=== PATIENT | male | born 1930 | race Caucasian/White ===

== ENCOUNTER 2016-03-27 11:34 | Emergency (ER) | payer MEDICARE, OTHER ==
[~2016-03-27] VITALS: Ht 175.3 cm; Wt 80.3 kg
[~2016-03-27 11:34] MED LIST: APIX5TAB PO; METF500 PO; MIRA33502 PO; NITR0.4S SL; PACE200T4 PO; POLY10O RIGHT EYE; TAMS0.4C4 PO; ZOCO40TA PO
[2016-03-27 11:42] VITALS: BP 139/65; PULSE 54; RESP 18; TEMP 97.8; O2SAT 97
--- NOTE | 2016-03-27 11:59 | PD ---
HPI Chief Complaint: Cold / Flu Symptoms Time Seen by Provider: 11:59 Travel History International Travel<30 days: No Contact w/Intl Traveler<30days: No Traveled to known affect area: No History of Present Illness HPI 85-year-old male with PMH of A. fib and diabetes, on Eloquis presents to the ED for evaluation of a 3 day history of sore throat, cough productive of yellow mucus. He endorses clear rhinorrhea. He denies headache, malaise, fever, chills, ear pain, shortness of breath. He endorses occasional nausea associated with coughing fits. Denies vomiting. States he is otherwise been feeling well. Endorses this years flu immunization. 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) Hypertension: Yes Inguinal Hernia: Yes (REPAIRED 1991) Immunizations Current: Yes Past Surgical History Genitourinary Surgery: Yes (Bladder CA ) Other Surgery: Yes (INGUINAL HERNIA REPAIR 1991) Social History Alcohol Use: No Tobacco Use: No (quit 50 years ago) Substance Use: No Allergies-Medications (Allergen,Severity, Reaction): Coded Allergies: No Known Allergies (Verified , 03/27/16) Reported Meds & Prescriptions Reported Meds & Active Scripts Active Fluticasone Nasal [place] 50 Mcg/Act Naspr 100 Mcg EACH NARE BID 14 Days 50 mcg/spray Reported Amiodarone (Amiodarone HCl) 200 Mg Tab 200 Mg PO DAILY Eliquis (Apixaban) 5 Mg Tab 5 Mg PO BID Simvastatin 10 Mg Tab 10 Mg PO DAILY Miralax Powder (Polyethylene Glycol 3350 Powder) 17 Gm Powd 17 Gm PO DAILY Mix and dissolve one measuring cap-ful (17 grams) in water or juice. Metformin (Metformin HCl) 500 Mg Tab 500 Mg PO DAILY With a meal Tamsulosin (Tamsulosin HCl) 0.4 Mg Cap 0.4 Mg PO HS Famotidine 40 Mg Tab 40 Mg PO HS Pantoprazole (Pantoprazole Sodium) 40 Mg Tab 40 Mg PO DAILY Review of Systems Except as stated in HPI: all other systems reviewed are Neg Physical Exam Narrative GENERAL: Well-nourished, well-developed elderly white male in no acute distress. SKIN: Warm and dry. HEAD: Normocephalic. Atraumatic. EYES: No scleral icterus. No injection or drainage. PERRLA. EOMI. ENT: Pearly sarabia tympanic membranes bilaterally. Nasal mucosa is moist, mildly erythematous. Oropharynx with mild posterior erythema, no edema or exudate. Uvula midline. Airway patent. NECK: Supple, trachea midline. No JVD or lymphadenopathy. CARDIOVASCULAR: Regular rate and rhythm without murmurs, gallops, or rubs. RESPIRATORY: Breath sounds clear and equal bilaterally. No accessory muscle use. GASTROINTESTINAL: Abdomen soft, non-tender, nondistended. + Bowel sounds MUSCULOSKELETAL: No cyanosis, or edema. The patient is observed to walk with a normal gait. BACK: Nontender without obvious deformity. No CVA tenderness. Data Data Last Documented VS Vital Signs Date Time Temp Pulse Resp B/P Pulse Ox O2 Delivery O2 Flow Rate FiO2 03/27/16 12:20 20 03/27/16 11:42 97.8 54 139/65 97 Orders Group A Rapid Strep Screen (03/27/16 12:08) Chest, Single Ap (03/27/16 ) Strep Culture (Group A) (03/27/16 12:26) MDM Medical Decision Making Medical Screen Exam Complete: Yes Emergency Medical Condition: Yes Differential Diagnosis Viral syndrome versus pharyngitis versus strep pharyngitis versus other Narrative Course 85-year-old male with PMH of A. fib and diabetes, on Eloquis presents to the ED for evaluation of a 3 day history of sore throat, cough productive of yellow mucus and clear rhinorrhea. He denies headache, malaise, fever, chills, ear pain, shortness of breath. He endorses occasional nausea associated with coughing fits. Denies vomiting. States he is otherwise been feeling well. Endorses this years flu immunization. Vitals reviewed. Physical exam reveals a nontoxic-appearing white male in no acute distress. Pearly sarabia tympanic membranes bilaterally. Nasal mucosa moist, mildly erythematous. There is mild posterior oropharyngeal erythema. No exudates, no edema. Uvula midline. Airway patent. Heart has a slow, regular rhythm. Chest clear to auscultation bilaterally. Remaining physical exam is unremarkable. Rapid strep swab negative. Chest x-ray reveals no acute disease per radiology read. Suspect this patient's cough is due to postnasal drip. Prescribed him Flonase 2 sprays each nostril daily. Recommended symptomatic treatment with OTC medication for cough, seek recommendations of the pharmacist. He is instructed to take the medication as prescribed, follow up with the primary care. We discussed reasons to return to the ED. He indicated understanding of the instructions and was amenable to plan of care. He is stable and discharged home. Diagnosis Primary Impression: Post-nasal drip Additional Impression: Cough Referrals: Primary Care Physician Patient Instructions: Acute Cough (ED), General Instructions, Safe Use of Cough and Cold Medicines (ED) Additional Instructions: Rest, hydrate. 2 sprays Flonase into each nostril daily. Increase handwashing frequency in order to reduce spread of viral illnesses in the community. Follow up with your primary care provider this week Return to the ED for any urgent or emergent medical condition. Med/Other Pt SpecificInfo: Prescription(s) given Scripts Fluticasone Nasal [place] 50 Mcg/Act [id number] Mcg EACH NARE BID 14 Days Ref 0 50 mcg/spray Prov:Pete Ernandez MD 03/27/16 Disposition: 01 DISCHARGE HOME Condition: Stable Shobha Angulo Mar 27, 2016 11:59
[2016-03-27] MEDS ORDERED: FAMO40TA PO (12:15)
[2016-03-27] MEDS ORDERED: SIMV10TA PO (12:15)
[2016-03-27] MEDS ORDERED: APIX5TAB PO (12:15)
[2016-03-27] MEDS ORDERED: TAMS0.4C4 PO (12:15)
[2016-03-27] MEDS ORDERED: METF500T PO (12:15)
[2016-03-27] MEDS ORDERED: PANT40TA3 PO (12:15)
[2016-03-27] MEDS ORDERED: MIRA33504 PO (12:15)
[2016-03-27] MEDS ORDERED: AMIO200T PO (12:15)
--- NOTE | 2016-03-27 12:47 | RADHPO ---
EXAM DATE/TIME: 03/27/2016 12:37 [facility] COMPARISON: No previous studies available for comparison. INDICATIONS : Cough, chest congestion. MEDICAL HISTORY : Hypertension. Cardiovascular disease. SURGICAL HISTORY : None. ENCOUNTER: Initial ACUITY: 1 week PAIN SCORE: 0/10 LOCATION: Bilateral chest FINDINGS: A single view of the chest demonstrates the lungs to be symmetrically aerated without evidence of mas s, infiltrate or effusion. Linear atelectasis versus scarring within the left lower lobe. The cardio mediastinal contours are unremarkable. Osseous structures are intact. CONCLUSION: 1. No acute disease. Abran Garber Jr., MD on March 27, 2016 at 12:45 Board Certified Radiologist. This report was verified electronically.
[2016-03-27] MEDS ORDERED: FLUT50SP EACH NARE (12:50)
== END 2016-03-27 12:57 | disposition home or self-care (01) ==
LOC: PHEFT 11:34
DX: R09.82 Postnasal drip (principal); R05 Cough; E11.9 Type 2 diabetes mellitus without complications; I48.91 Unspecified atrial fibrillation; E78.00 Pure hypercholesterolemia, unspecified; I10 Essential (primary) hypertension
CPT/HCPCS: 71010; 87081; 87880; 99283

== ENCOUNTER 2016-09-19 02:00 | Emergency (ER) | payer MEDICARE, OTHER ==
[~2016-09-19 02:00] MED LIST changes: +AMIO200T PO; +FAMO40TA PO; +FLUT50SP EACH NARE; -METF500 PO; +METF500T PO; -MIRA33502 PO; +MIRA33504 PO; -NITR0.4S SL; -PACE200T4 PO; +PANT40TA3 PO; -POLY10O RIGHT EYE; +SIMV10TA PO; -ZOCO40TA PO
[2016-09-19 02:07] VITALS: BP 156/68; PULSE 56; RESP 16; TEMP 97.5; O2SAT 98
[2016-09-19] MEDS ORDERED: PROPARACAINE HCL 0.5% OPHT SOLN 15 ML BTL EACH EYE ONE (02:15)
[2016-09-19] MEDS ORDERED: BACIOIN6 LEFT EYE (02:21)
--- NOTE | 2016-09-19 02:22 | PD ---
HPI Chief Complaint: left eye Time Seen by Provider: 02:17 Travel History International Travel<30 days: No Contact w/Intl Traveler<30days: No Traveled to known affect area: No History of Present Illness HPI woke up with sensation of fb on left eye, he rubbed his eye, still felt it and his helped to irrigate eye but still has that sensation that some thing is there. 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) Hypertension: Yes Inguinal Hernia: Yes (REPAIRED 1991) Immunizations Current: Yes Past Surgical History Genitourinary Surgery: Yes (Bladder CA ) Other Surgery: Yes (INGUINAL HERNIA REPAIR 1991) Social History Alcohol Use: No Tobacco Use: No (quit 50 years ago) Substance Use: No Allergies-Medications (Allergen,Severity, Reaction): Coded Allergies: No Known Allergies (Verified , 03/27/16) Reported Meds & Prescriptions Reported Meds & Active Scripts Active Fluticasone Nasal [place] 50 Mcg/Act Naspr 100 Mcg EACH NARE BID 14 Days 50 mcg/spray Reported Amiodarone (Amiodarone HCl) 200 Mg Tab 200 Mg PO DAILY Eliquis (Apixaban) 5 Mg Tab 5 Mg PO BID Simvastatin 10 Mg Tab 10 Mg PO DAILY Miralax Powder (Polyethylene Glycol 3350 Powder) 17 Gm Powd 17 Gm PO DAILY Mix and dissolve one measuring cap-ful (17 grams) in water or juice. Metformin (Metformin HCl) 500 Mg Tab 500 Mg PO DAILY With a meal Tamsulosin (Tamsulosin HCl) 0.4 Mg Cap 0.4 Mg PO HS Famotidine 40 Mg Tab 40 Mg PO HS Pantoprazole (Pantoprazole Sodium) 40 Mg Tab 40 Mg PO DAILY Review of Systems Except as stated in HPI: all other systems reviewed are Neg Eyes: Positive: Foreign Body Sensation Physical Exam Narrative GENERAL: SKIN: Warm and dry. HEAD: Atraumatic. Normocephalic. EYES: Pupils equal and round. No scleral icterus. No injection or drainage. 20/ 50 unilateral and bilaterally corrected...proparacaine applied to left eye, flourescein and uv light showed corneal abrasion at 4 o clock area ENT: No nasal bleeding or discharge. Mucous membranes pink and moist. NECK: Trachea midline. No JVD. CARDIOVASCULAR: Regular rate and rhythm. RESPIRATORY: No accessory muscle use. Clear to auscultation. Breath sounds equal bilaterally. GASTROINTESTINAL: Abdomen soft, non-tender, nondistended. Hepatic and splenic margins not palpable. MUSCULOSKELETAL: Extremities without clubbing, cyanosis, or edema. No obvious deformities. NEUROLOGICAL: Awake and alert. No obvious cranial nerve deficits. Motor grossly within normal limits. Five out of 5 muscle strength in the arms and legs. Normal speech. PSYCHIATRIC: Appropriate mood and affect; insight and judgment normal. Data Data Last Documented VS Vital Signs Date Time Temp Pulse Resp B/P Pulse Ox O2 Delivery O2 Flow Rate FiO2 09/19/16 02:07 97.5 56 16 156/68 98 Orders Proparacaine 0.5% Opth Soln (Alcaine 0.5 (09/19/16 02:15) [facility] Medical Decision Making Medical Screen Exam Complete: Yes Emergency Medical Condition: Yes Medical Record Reviewed: Yes Differential Diagnosis fb v corneal abrasion v globe rupture Narrative Course examination neg for ry's sign, but did show corneal abrasion, normal pupil, eomi, perrl, 20/50 corrected vision. patient will be d/c home. Diagnosis Primary Impression: Left corneal abrasion Qualified Code: S05.02XA - Abrasion of left cornea, initial encounter Patient Instructions: Corneal Abrasion (ED) Scripts Bacitracin Opth Oint 500 Unit/Gm Oint1 Applic LEFT EYE BID #1 TUBE Ref 0 Prov:Steve Moore MD 09/19/16 Disposition: 01 DISCHARGE HOME Condition: Stable Steve Moore MD Sep 19, 2016 02:22
[2016-09-19] MEDS ORDERED: GLIP5TAB8 PO (02:34)
[2016-09-19] MEDS ORDERED: CLOP75TA PO (02:34)
[2016-09-19] MEDS ORDERED: POLY119P (02:34)
== END 2016-09-19 02:42 | disposition home or self-care (01) ==
LOC: PHED 02:00
DX: S05.02XA Injury of conjunctiva and corneal abrasion without foreign body, left eye, initial encounter (principal); T15.02XA Foreign body in cornea, left eye, initial encounter; I48.91 Unspecified atrial fibrillation; E78.00 Pure hypercholesterolemia, unspecified; E11.9 Type 2 diabetes mellitus without complications; I10 Essential (primary) hypertension
CPT/HCPCS: 99283

== ENCOUNTER 2017-05-04 12:37 | Emergency (ER) | payer MEDICARE, OTHER ==
[~2017-05-04] VITALS: Ht 175.3 cm; Wt 80.0 kg
[~2017-05-04 12:37] MED LIST changes: +BACIOIN6 LEFT EYE; +CLOP75TA PO; -FAMO40TA PO; -FLUT50SP EACH NARE; +GLIP5TAB8 PO; -METF500T PO; -MIRA33504 PO; -PANT40TA3 PO; +POLY119P
[2017-05-04 13:02] VITALS: BP 126/59; PULSE 85; RESP 16; TEMP 97.9; O2SAT 95
--- NOTE | 2017-05-04 14:29 | PD ---
HPI Chief Complaint: Wound/Suture/Staple Re-Check Time Seen by Provider: 13:44 Travel History International Travel<30 days: No Contact w/Intl Traveler<30days: No Traveled to known affect area: No History of Present Illness HPI This is an 86-year-old male here requesting a dressing change. Patient reports he had a cardiac catheterization done in [place] 7 days ago and was told to leave the right groin dressing in place until follow-up with his primary. He reports he will be in [facility] until next week and was not able to drive to [place] to follow up with his primary. He denies any medical complaint. No fever, chills, pain, drainage at the site. He denies chest pain, shortness of breath. PFSH Past Medical History Hx Anticoagulant Therapy: Yes Atrial Fibrillation: Yes Heart Rhythm Problems: Yes (A-fib) Cancer: Yes (bladder cancer) Cardiac Catheterization: Yes (2002 DR. 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) Hypertension: Yes Inguinal Hernia: Yes (REPAIRED 1991) Immunizations Current: Yes Influenza Vaccination: No ?: Not Past Surgical History Cardiac Surgery: Yes Coronary Stent: Yes Genitourinary Surgery: Yes (Bladder CA ) Other Surgery: Yes (INGUINAL HERNIA REPAIR 1991) Social History Alcohol Use: No Tobacco Use: No (quit 50 years ago) Substance Use: No Allergies-Medications (Allergen,Severity, Reaction): Coded Allergies: No Known Allergies (Verified Adverse Reaction, Unknown, 05/04/17) Reported Meds & Prescriptions Reported Meds & Active Scripts Active Reported Glipizide 5 Mg Tab 5 Mg PO DAILY Take 30 minutes before a meal Clopidogrel (Clopidogrel Bisulfate) 75 Mg Tab 75 Mg PO DAILY Clearlax (Polyethylene Glycol 3350) 1 Pow Pow Amiodarone (Amiodarone HCl) 200 Mg Tab 200 Mg PO DAILY Eliquis (Apixaban) 5 Mg Tab 5 Mg PO BID Simvastatin 10 Mg Tab 10 Mg PO DAILY Tamsulosin (Tamsulosin HCl) 0.4 Mg Cap 0.4 Mg PO HS Review of Systems Except as stated in HPI: all other systems reviewed are Neg General / Constitutional: No: Fever Eyes: No: Visual changes HENT: No: Headaches Cardiovascular: No: Chest Pain or Discomfort Respiratory: No: Shortness of Breath Gastrointestinal: No: Abdominal Pain Genitourinary: No: Dysuria Physical Exam Narrative GENERAL: Alert and well-appearing 86-year-old male SKIN: Warm and dry. Right groin: Original clean/dry Tegaderm in place. Dressing was removed. Well-healed incision measuring less than 3 mm. No drainage. No erythema. No warmth. No induration. HEAD: Normocephalic. EYES: No injection or drainage. NECK: Supple CARDIOVASCULAR: Regular rate and rhythm RESPIRATORY: Breath sounds equal bilaterally. No accessory muscle use. Data Data Last Documented VS Vital Signs Date Time Temp Pulse Resp B/P (MAP) Pulse Ox O2 Delivery O2 Flow Rate FiO2 05/04/17 13:02 97.9 85 16 126/59 (81) 95 MDM Medical Decision Making Medical Screen Exam Complete: Yes Emergency Medical Condition: Yes Differential Diagnosis Surgical site recheck, surgical site infection, dressing change Narrative Course This is an 86-year-old male here requesting dressing change to his right groin. Patient had cardiac catheterization approximately one week ago while in [place] after being admitted for chest pain. He was unable to follow-up with his primary doctor and presents here. He has no medical complaint. The original dressing was removed and new sterile dressing was applied. The surgical incision is well-healed without evidence of infection. No bleeding. Patient is to follow-up with his primary doctor when he returns to [place] on 05/08. Diagnosis Primary Impression: Encounter for change of dressing Referrals: Primary Care Physician Additional Instructions: Keep the dressing in place as directed. Follow-up with her primary DrJulio when you return to [place]. Return to emergency department if he developed any pain or drainage from the site Disposition: 01 DISCHARGE HOME Condition: Stable TatecalvinSherron PEDRO May 04, 2017 14:29
== END 2017-05-04 14:39 | disposition home or self-care (01) ==
LOC: PHEFT 12:37
DX: Z51.89 Encounter for other specified aftercare (principal); I48.91 Unspecified atrial fibrillation; E78.00 Pure hypercholesterolemia, unspecified; E11.9 Type 2 diabetes mellitus without complications; I10 Essential (primary) hypertension; Z79.899 Other long term (current) drug therapy; Z87.891 Personal history of nicotine dependence
CPT/HCPCS: 99282